=== PATIENT | female | born 1975 | race Caucasian/White ===

== ENCOUNTER 2017-06-03 11:58 | Emergency (ER) | payer OTHER ==
[2017-06-03] MEDS ORDERED: ONDANSETRON 4 MG/2 ML VIAL IVP ONE (12:35)
[2017-06-03] MEDS ORDERED: ONDANSETRON 4 MG/2 ML VIAL ONE (12:36)
[2017-06-03] MEDS ORDERED: NS 1,000 ML IV ONE (13:08)
[2017-06-03 13:12] LABS: % IMMATURE GRANULYOCYTES 0.4 % (0.0-1.1); ABSOLUTE IMMATURE GRANULOCYTES 0.03 10^3/uL (0.00-0.10); ADD DIFF? NO; ADD MORPH? NO; ADD SCAN? NO; ATYPICAL LYMPHOCYTE FLAG 0 (0-99); FRAGMENT RBC FLAG 0 (0-99); HEMATOCRIT 38.9 % (38.0-47.0); HEMOGLOBIN 14.3 g/dL (12.6-16.3); LEFT SHIFT FLG 0 (0-99); LIPEMIA HEMOLYSIS FLAG 90 (0-99); MEAN CELL HEMOGLOBIN 35.7 pg (27.9-34.1); MEAN CELL HEMOGLOBIN CONCENTR. 36.8 g/dL (32.4-36.7); MEAN PLATELET VOLUME 10.7 fL (8.7-11.7); PLATELET CLUMPS FLAG 20 (0-99); PLATELET COUNT 251 10^3/uL (150-400); RED BLOOD CELL COUNT 4.01 10^6/uL (4.18-5.33)
--- NOTE | 2017-06-03 13:40 | EDPHY ---
H & P Stated Complaint: n/v/d Time Seen by Provider: 06/03/17 12:44 HPI/ROS: CHIEF COMPLAINT: Nausea, vomiting, diarrhea HISTORY OF PRESENT ILLNESS: The patient presents to the ED with a 1 day history of nausea, vomiting and diarrhea. The patient was seen at urgent care earlier today. She was having complaints of generalized weakness and diaphoresis. She was referred to the ED for further evaluation. The patient denies recent antibiotic use. The patient denies history of recent abdominal surgery. The patient does have a history of prior cholecystectomy. The patient denies any recent sick contacts. She denies any dietary changes. REVIEW OF SYSTEMS: A comprehensive 10 point review of systems is otherwise negative aside from elements mentioned in the history of present illness. Source: Patient Exam Limitations: No limitations - Personal History LMP (Females 10-55): 8-14 Days Ago Current Tetanus/Diphtheria Vaccine: Unsure - Medical/Surgical History Hx Asthma: No Hx Chronic Respiratory Disease: No Hx Diabetes: No Hx Cardiac Disease: No Hx Renal Disease: No Hx Cirrhosis: No Hx Alcoholism: No Hx HIV/AIDS: No Hx Splenectomy or Spleen Trauma: No Other PMH: breast cancer - Social History Smoking Status: Never smoked - Physical Exam Exam: General Appearance: Alert, no distress Eyes: Pupils equal and round no pallor or injection ENT, Mouth: Mucous membranes moist Respiratory: There are no retractions, lungs are clear to auscultation Cardiovascular: Regular rate and rhythm Gastrointestinal: Abdomen is soft and nontender, no masses, bowel sounds normal Neurological: A&O, normal motor function, normal sensory exam, normal cranial nerves Skin: Warm and dry, no rashes Musculoskeletal: Neck is supple nontender Extremities: symmetrical, full range of motion Constitutional: Initial Vital Signs Temperature (C) 36.6 C 06/03/17 12:02 Heart Rate 87 06/03/17 12:02 Respiratory Rate 18 06/03/17 12:02 Blood Pressure 157/86 H 06/03/17 12:02 O2 Sat (%) 97 06/03/17 12:02 O2 Delivery Mode Room Air Allergies/Adverse Reactions: No Known Allergies Allergy (Unverified 06/03/17 12:01) Home Medications: Medication Instructions Recorded Tamoxifen Citrate 06/03/17 Medical Decision Making ED Course/Re-evaluation: The patient presents emergency department with acute nausea, vomiting and diarrhea. The patient's symptoms are all consistent with gastroenteritis. She has a benign abdominal examination. The patient had unremarkable screening laboratory studies done in the emergency department. The patient did received 2 L of IV fluid rehydration. She received IV Zofran. The patient had no further vomiting in the ED. I did re-evaluate her at 3:30 p.m. and she continues to have stable vital signs and currently is feeling better. The patient will be discharged home with instructions to use Zofran as needed for nausea. She can use Imodium as needed for diarrhea. She is given customary aftercare instructions and return precautions. Differential Diagnosis: Differential diagnosis considered includes gastroenteritis, dehydration, metabolic abnormality - Data Points Laboratory Results: Laboratory Results 06/03/17 11:36 06/03/17 11:36 06/03/17 06/03/17 06/03/17 11:36 11:36 11:36 WBC 6.89 10^3/uL 10^3/uL (3.80-9.50) RBC 4.01 10^6/uL L 10^6/uL (4.18-5.33) Hgb 14.3 g/dL g/dL (12.6-16.3) Hct 38.9 % % (38.0-47.0) MCV 97.0 fL fL (81.5-99.8) MCH 35.7 pg H pg (27.9-34.1) MCHC 36.8 g/dL H g/dL (32.4-36.7) RDW 12.0 % % (11.5-15.2) Plt Count 251 10^3/uL 10^3/uL (150-400) MPV 10.7 fL fL (8.7-11.7) Neut % (Auto) 65.9 % % (39.3-74.2) Lymph % (Auto) 24.2 % % (15.0-45.0) [place] % (Auto) 7.4 % % (4.5-13.0) Eos % (Auto) 1.5 % % (0.6-7.6) Baso % (Auto) 0.6 % % (0.3-1.7) Nucleat RBC Rel Count 0.0 % % (0.0-0.2) Absolute Neuts (auto) 4.54 10^3/uL 10^3/uL (1.70-6.50) Absolute Lymphs (auto) 1.67 10^3/uL 10^3/uL (1.00-3.00) Absolute Monos (auto) 0.51 10^3/uL 10^3/uL (0.30-0.80) Absolute Eos (auto) 0.10 10^3/uL 10^3/uL (0.03-0.40) Absolute Basos (auto) 0.04 10^3/uL 10^3/uL (0.02-0.10) Absolute Nucleated RBC 0.00 10^3/uL 10^3/uL (0-0.01) Immature Gran % 0.4 % % (0.0-1.1) Immature Gran # 0.03 10^3/uL 10^3/uL (0.00-0.10) Sodium 138 mEq/L mEq/L (134-144) Potassium 3.6 mEq/L mEq/L (3.5-5.2) Chloride 103 mEq/L mEq/L (97-110) Carbon Dioxide 18 mEq/l L mEq/l (22-31) Anion Gap 17 mEq/L H mEq/L (8-16) BUN 11 mg/dL mg/dL (7-23) Creatinine 0.7 mg/dL mg/dL (0.6-1.0) Estimated GFR > 60 Glucose 107 mg/dL H mg/dL (70-100) Calcium 9.9 mg/dL mg/dL (8.5-10.4) Beta HCG, Qual NEGATIVE Medications Given: Discontinued Medications Sodium Chloride (Ns) 1,000 mls @ 0 mls/hr IV EDNOW ONE; Wide Open PRN Reason: Protocol Stop: 06/03/17 13:09 Last Admin: 06/03/17 13:10 Dose: 1,000 mls Ondansetron HCl (Zofran) 4 mg IVP EDNOW ONE Stop: 06/03/17 12:36 Last Admin: 06/03/17 12:38 Dose: 4 mg Departure - Departure Disposition: Home, Routine, Self-Care Clinical Impression: Acute gastroenteritis Condition: Good Instructions: Gastroenteritis (ED) Additional Instructions: 1. Zofran as needed for nausea 2. Imodium as needed for diarrhea 3. Return to the ED for any worsening symptoms or other concerns. Referrals: NONE *PRIMARY CARE P,. [Primary Care Provider] - As per Instructions
[2017-06-03 13:42] LABS: ANION GAP 17 mEq/L (8-16); CALCIUM 9.9 mg/dL (8.5-10.4); CARBON DIOXIDE 18 mEq/l (22-31); CHLORIDE 103 mEq/L (97-110); CREATININE 0.7 mg/dL (0.6-1.0); GLOMERULAR FILTRATION RATE > 60; GLUCOSE 107 mg/dL (70-100); POTASSIUM 3.6 mEq/L (3.5-5.2); SODIUM 138 mEq/L (134-144)
[2017-06-03 15:08] VITALS: O2SAT 94
[2017-06-03 15:48] VITALS: BP 119/72; PULSE 74; RESP 18; TEMP 99
== END 2017-06-03 15:47 | disposition home or self-care (01) ==
DX: K52.9 Noninfective gastroenteritis and colitis, unspecified (principal); E86.9 Volume depletion, unspecified; Z85.3 Personal history of malignant neoplasm of breast
CPT/HCPCS: 96374; J2405